=== PATIENT | female | born 1955 | race Caucasian/White ===

== ENCOUNTER → 2019-10-08 09:55 | Outpatient (CLI) | payer OTHER, SELFPAY ==
--- NOTE | 2019-10-08 | DI.US.S_ITS ---
PROCEDURE: US PELVIC COMPLETE INDICATIONS: PELVIC AND PERINEAL PAIN TECHNIQUE: Real-time scanning was performed of the pelvic organs, with image documentation. Additional endovaginal scanning was necessary due to incomplete visualization of the adnexal and endometrial structures by transabdominal scanning. COMPARISON: None. FINDINGS: Transabdominal scanning: Limited scanning through the kidneys shows no hydronephrosis. 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 No pathologic free abdominal or pelvic fluid. Endovaginal scanning: Uterus: Uterus is normal in size at 8.6 x 2.9 x 4.5 cm. The endometrium measures 1.3 mm in combined thickness. Anterior pedunculated subserosal fibroid measuring up to 2.5 cm. Anterior intramural fibroid measuring 14 mm. Ovaries: Postmenopausal ovaries identified. No adnexal masses. IMPRESSION: Uterine fibroids, largest of which measures up to 2.5 cm. No source for pelvic and perineal pain identified. Dictated by: Jerry ZHONG Interpreted: Caitlyn Weber MD on 10/08/2019 at 13:01 Approved by: Caitlyn Weber M.D. on 10/08/2019 at 15:47
== END ==
PROVIDERS: Visit Provider Physician Assistant Medical
DX: R10.2 Pelvic and perineal pain (principal); D25.1 Intramural leiomyoma of uterus; D25.2 Subserosal leiomyoma of uterus
CPT/HCPCS: 76830; 76856